=== PATIENT | male | born 1975 | race Two or more races ===

== ENCOUNTER 2020-06-30 03:34 | Inpatient (IN) | payer MEDICAID ==
[~2020-06-30] VITALS: Ht 162.6 cm; Wt 120.4 kg
[2020-06-30] MEDS ORDERED: ZOLPIDEM TARTRATE 10 MG TABLET PO PRN (05:15)
[2020-06-30] MEDS ORDERED: LORazepam 2 MG TABLET PO PRN (05:15)
[2020-06-30] MEDS ORDERED: HALOPERIDOL 5 MG TABLET PO PRN (05:15)
[2020-06-30 06:00] VITALS: BP 125/81
[2020-06-30] MEDS ORDERED: PNEUMOCOCCAL VACCINE POLYVALENT 0.5 ML VIAL [PPSV23] IM ONE (07:15)
[2020-06-30] MEDS: ASPIRIN 81 MG CHEWABLE TABLET PO SCH (08:42)
[2020-06-30 08:54] VITALS: BP 125/60
[2020-06-30] MEDS ORDERED: BUPR150SR PO (10:31)
[2020-06-30] MEDS ORDERED: CEPH500C3 PO (10:31)
[2020-06-30] MEDS ORDERED: PRAZ1 PO (10:31)
[2020-06-30] MEDS ORDERED: LOSA25TA21 PO (10:31)
[2020-06-30] MEDS ORDERED: GABA-1181 PO (10:31)
[2020-06-30] MEDS: BuPROPion HCL XL 150 MG ER TABLET PO SCH (13:00)
[2020-06-30] MEDS: NYSTATIN 15 GM POWDER BOTTLE TP SCH ×2 (13:00→16:57)
[2020-06-30 16:18] VITALS: BP 119/87
[2020-06-30] MEDS: ARIPiprazole 2 MG TABLET PO SCH (16:56)
[2020-06-30] MEDS: LOSARTAN POTASSIUM 50 MG TABLET PO SCH (16:56)
[2020-06-30] MEDS: PRAZOSIN HCL 1 MG CAPSULE PO SCH (21:11)
[2020-06-30] MEDS: ATORVASTATIN CALCIUM 40 MG TABLET PO SCH (21:11)
[2020-07-01 06:07] VITALS: BP 108/51
[2020-07-01 08:23] VITALS: BP 126/72
[2020-07-01] MEDS: LOSARTAN POTASSIUM 50 MG TABLET PO SCH (09:16)
[2020-07-01] MEDS: ASPIRIN 81 MG CHEWABLE TABLET PO SCH (09:16)
[2020-07-01] MEDS: ARIPiprazole 2 MG TABLET PO SCH (09:16)
[2020-07-01] MEDS: BuPROPion HCL XL 150 MG ER TABLET PO SCH (09:17)
[2020-07-01] MEDS: NYSTATIN 15 GM POWDER BOTTLE TP SCH ×3 (09:17→17:32)
[2020-07-01 16:39] VITALS: BP 111/66
[2020-07-01] MEDS: PRAZOSIN HCL 1 MG CAPSULE PO SCH (20:11)
[2020-07-01] MEDS: ATORVASTATIN CALCIUM 40 MG TABLET PO SCH (20:11)
[2020-07-02 00:21] VITALS: BP 116/72
[2020-07-02 08:25] VITALS: BP 120/78
[2020-07-02] MEDS ORDERED: MAG HYDROX/AL HYDROX/SIMETH ES 30 ML SUSPENSION UDCUP PO PRN (08:30)
[2020-07-02] MEDS ORDERED: ALBUTEROL SULFATE HFA 90 MCG/PUFF 8 GM INHALER IH PRN (08:30)
[2020-07-02] MEDS ORDERED: GuaiFENesin/D-METHORPHAN [SUGAR-FREE] 200-20MG/10 ML SYRUP UDCUP PO PRN (08:30)
[2020-07-02] MEDS ORDERED: DOCUSATE SODIUM 100 MG CAPSULE PO PRN (08:30)
[2020-07-02] MEDS ORDERED: ACETAMINOPHEN 325 MG TABLET PO PRN (08:30)
[2020-07-02] MEDS ORDERED: IBUPROFEN 400 MG TABLET PO PRN (08:30)
[2020-07-02] MEDS ORDERED: PETROLATUM,WHITE 28 GM JELLY TP PRN (08:30)
[2020-07-02] MEDS ORDERED: CloNIDine HCL 0.1 MG TABLET PO PRN (08:30)
[2020-07-02] MEDS ORDERED: ONDANSETRON HCL 4 MG TABLET PO PRN (08:30)
[2020-07-02] MEDS ORDERED: LOPERAMIDE HCL 2 MG CAPSULE PO PRN (08:30)
[2020-07-02] MEDS ORDERED: MAGNESIUM HYDROXIDE SUSPENSION 30 ML UDCUP PO PRN (08:30)
[2020-07-02] MEDS ORDERED: NICOTINE 14 MG/24 HOUR PATCH TD PRN (08:30)
[2020-07-02] MEDS: LOSARTAN POTASSIUM 50 MG TABLET PO SCH (09:00)
[2020-07-02] MEDS: ARIPiprazole 2 MG TABLET PO SCH (09:00)
[2020-07-02] MEDS: BuPROPion HCL XL 150 MG ER TABLET PO SCH (09:00)
[2020-07-02] MEDS: ASPIRIN 81 MG CHEWABLE TABLET PO SCH (09:00)
[2020-07-02 09:01] LABS: BASOPHILS % (AUTO) 0.9 % (0.0-2.0); EOSINOPHILS % (AUTO) 0.6 % (1.0-6.0); HEMATOCRIT 46.4 % (41-53); HEMOGLOBIN 15.7 g/dL (13.5-17.5); LYMPHOCYTES # (AUTO) 1.7 K/uL (1.0-4.8); MEAN CORPUSCULAR HEMOGLOBIN 32.9 pg (26.0-34.0); MEAN CORPUSCULAR HGB CONC 33.9 G/dL (31.0-37.0); MEAN CORPUSCULAR VOLUME 97 fL (80-100); MONOCYTES # (AUTO) 0.4 K/uL (0.1-1.0); MONOCYTES % (AUTO) 6.7 % (2.0-9.0); NEUTROPHILS # (AUTO) 4.2 K/uL (1.8-7.7); NEUTROPHILS % (AUTO) 65.8 % (40.0-70.0); PLATELET COUNT (AUTO) 216 K/uL (150-450); RED BLOOD CELL COUNT(AUTO) 4.78 MIL/uL (4.50-5.90); RED CELL DISTRIBUTION WIDTH 13.5 % (11.5-14.5)
[2020-07-02] MEDS: NYSTATIN 15 GM POWDER BOTTLE TP SCH ×3 (09:06→16:11)
[2020-07-02 09:10] LABS: HEMOGLOBIN A1C 5.8 % (3.8-5.6)
[2020-07-02 09:27] LABS: ALANINE AMINOTRANSFERASE 75 U/L (12-78); ALBUMIN 2.9 g/dL (3.4-5.0); ALKALINE PHOSPHATASE 77 U/L (46-116); ANION GAP 6 mmol/L (8-16); ASPARTATE AMINOTRANSFERASE 40 U/L (15-37); BILIRUBIN,TOTAL 0.4 mg/dL (0.1-1.0); CALCIUM, TOTAL 8.5 mg/dL (8.8-10.5); CARBON DIOXIDE 28 mmol/L (22-29); CHLORIDE 106 mmol/L (98-107); CHOL/HDL RATIO 5.2 (4.2-7.3); CHOLESTEROL 152 mg/dL (131-200); FREE T4 (FREE THYROXINE) 0.68 ng/dL (0.76-1.46); GLOMERULAR FILTR. RATE CALC > 60 mL/min (>60); GLUCOSE,RANDOM 223 mg/dL (70-110); HDL CHOLESTEROL 29 mg/dL (40-60); LDL CHOL (CALC.) 82 mg/dL (0-130); POTASSIUM 4.2 mmol/L (3.5-5.1); SODIUM SERUM 140 mmol/L (136-145); THYROID STIMULATING HORMONE 2.29 uIU/mL (0.36-3.74); TOTAL PROTEIN, SERUM 6.7 g/dL (6.4-8.2); TRIGLYCERIDES 203 mg/dL (15-150); UREA NITROGEN, BLOOD 14 mg/dL (7-18)
[2020-07-02 16:20] VITALS: BP 140/60
[2020-07-02] MEDS: PRAZOSIN HCL 1 MG CAPSULE PO SCH (21:00)
[2020-07-02] MEDS: ATORVASTATIN CALCIUM 40 MG TABLET PO SCH (21:00)
[2020-07-03 05:32] VITALS: BP 136/60
[2020-07-03] MEDS: MetFORMIN HCL 500 MG TABLET PO SCH (07:04)
[2020-07-03] MEDS: ARIPiprazole 2 MG TABLET PO SCH (08:54)
[2020-07-03] MEDS: LOSARTAN POTASSIUM 50 MG TABLET PO SCH (08:54)
[2020-07-03] MEDS: ASPIRIN 81 MG CHEWABLE TABLET PO SCH (08:54)
[2020-07-03] MEDS: NYSTATIN 15 GM POWDER BOTTLE TP SCH ×3 (08:58→17:39)
[2020-07-03] MEDS: ESCITALOPRAM OXALATE 10 MG TABLET PO SCH ×2 (09:00→14:00)
[2020-07-03 09:20] VITALS: BP 147/91
[2020-07-03 16:58] VITALS: BP 138/80
[2020-07-03] MEDS: ATORVASTATIN CALCIUM 40 MG TABLET PO SCH (20:59)
[2020-07-03] MEDS: PRAZOSIN HCL 1 MG CAPSULE PO SCH (20:59)
[2020-07-04 00:58] VITALS: BP 113/76
[2020-07-04] MEDS: MetFORMIN HCL 500 MG TABLET PO SCH (06:33)
[2020-07-04 08:47] VITALS: BP 134/93
[2020-07-04] MEDS: ARIPiprazole 2 MG TABLET PO SCH (08:50)
[2020-07-04] MEDS: LOSARTAN POTASSIUM 50 MG TABLET PO SCH (08:50)
[2020-07-04] MEDS: ESCITALOPRAM OXALATE 10 MG TABLET PO SCH (08:50)
[2020-07-04] MEDS: ASPIRIN 81 MG CHEWABLE TABLET PO SCH (08:50)
[2020-07-04] MEDS: NYSTATIN 15 GM POWDER BOTTLE TP SCH ×3 (08:51→16:57)
[2020-07-04 16:25] VITALS: BP 129/70
[2020-07-04 20:20] VITALS: BP 132/74
[2020-07-04] MEDS: ATORVASTATIN CALCIUM 40 MG TABLET PO SCH (20:23)
[2020-07-04] MEDS: PRAZOSIN HCL 1 MG CAPSULE PO SCH (20:23)
[2020-07-05 00:34] VITALS: BP 119/83
[2020-07-05] MEDS: MetFORMIN HCL 500 MG TABLET PO SCH (06:50)
[2020-07-05 08:26] VITALS: BP 131/73
[2020-07-05] MEDS: LOSARTAN POTASSIUM 50 MG TABLET PO SCH (08:29)
[2020-07-05] MEDS: ESCITALOPRAM OXALATE 10 MG TABLET PO SCH (08:29)
[2020-07-05] MEDS: ASPIRIN 81 MG CHEWABLE TABLET PO SCH (08:29)
[2020-07-05] MEDS: ARIPiprazole 2 MG TABLET PO SCH (08:29)
[2020-07-05] MEDS: NYSTATIN 15 GM POWDER BOTTLE TP SCH ×3 (08:30→17:11)
[2020-07-05] MEDS ORDERED: ARIPiprazole 5 MG TABLET PO ONE (10:30)
[2020-07-05 16:27] VITALS: BP 138/81
[2020-07-05 20:14] VITALS: BP 134/78
[2020-07-05] MEDS: ATORVASTATIN CALCIUM 40 MG TABLET PO SCH (20:14)
[2020-07-05] MEDS: PRAZOSIN HCL 1 MG CAPSULE PO SCH (20:14)
[2020-07-06 06:01] VITALS: BP 129/76
[2020-07-06] MEDS: MetFORMIN HCL 500 MG TABLET PO SCH (06:59)
[2020-07-06 08:30] VITALS: BP 136/87
[2020-07-06] MEDS: ASPIRIN 81 MG CHEWABLE TABLET PO SCH (08:48)
[2020-07-06] MEDS: LOSARTAN POTASSIUM 50 MG TABLET PO SCH (08:48)
[2020-07-06] MEDS: NYSTATIN 15 GM POWDER BOTTLE TP SCH ×2 (08:49→13:13)
[2020-07-06] MEDS ORDERED: ESCITALOPRAM OXALATE 10 MG TABLET PO SCH (09:00)
[2020-07-06] MEDS ORDERED: ARIPiprazole 10 MG TABLET PO SCH (09:00)
[2020-07-06] MEDS ORDERED: ARIP10TA8 PO (09:54)
[2020-07-06] MEDS ORDERED: ESCI10 PO (09:54)
[2020-07-06] MEDS ORDERED: PRAZ1 PO (09:54)
[2020-07-06] MEDS ORDERED: LOSA50TA37 PO (11:04)
[2020-07-06] MEDS ORDERED: ATOR40TA28 PO (11:04)
[2020-07-06] MEDS ORDERED: ASPI-1450 PO (11:04)
[2020-07-06] MEDS ORDERED: METF-960 PO (11:04)
== END 2020-07-06 14:53 | disposition home or self-care (01) | DRG 751 ==
LOC: B2S 04:45
DX: F33.3 Major depressive disorder, recurrent, severe with psychotic symptoms (principal); R45.851 Suicidal ideations; E66.9 Obesity, unspecified; E78.5 Hyperlipidemia, unspecified; G47.33 Obstructive sleep apnea (adult) (pediatric); F15.10 Other stimulant abuse, uncomplicated; I10 Essential (primary) hypertension; M54.30 Sciatica, unspecified side; R73.03 Prediabetes; Z59.0 Homelessness; Z79.899 Other long term (current) drug therapy; Z91.5 Personal history of self-harm; Z28.82 Immunization not carried out because of caregiver refusal; Z68.42 Body mass index [BMI] 45.0-49.9, adult
CPT/HCPCS: 83036; 84439; 84443